=== PATIENT | male | born 1950 | race Caucasian/White ===

== ENCOUNTER 2018-09-29 22:11 | Emergency (ER) ==
[2018-09-29 22:19] VITALS: BP 104/57; TEMP 98.6; BMI 19.9
[2018-09-29] MEDS ORDERED: SODIUM CHLORIDE 1,000 ML IV STA (22:22)
[2018-09-29] MEDS ORDERED: ZOFRAN 4 MG/2 ML IVP STA (22:24)
--- NOTE | 2018-09-29 23:35 | ED.PDOC ---
General ED Provider: Dr. FRANCES MORA-ER Chief Complaint: Dizziness Stated Complaint: i smoked some strong pot aNd i am tired Time Seen by Physician: 22:15 Mode of Arrival: Walk-In Information Source: Patient Exam Limitations: No limitations Nursing and Triage Documentation Reviewed and Agree: Yes Does patient meet sepsis criteria?: No System Inflammatory Response Syndrome: Not Applicable Sepsis Protocol: For patient's 13 years and over: Temp is 96.8 and below OR 101 and greater Pulse >90 BPM Resp >20/minute Acutely Altered Mental Status Are patient's symptoms suggestive of a new infection, such as: -Pneumonia -Skin, Soft Tissue -Endocarditis -UTI -Bone, Joint Infection -Implantable Device -Acute Abdominal Infection -Wound Infection -Meningitis -Blood Stream Catheter Infection -Unknown Miscellaneous Complaint Exam - Complex/Multi-System Complaint/Exam Onset/Duration: tonight Symptoms Are: Still present Initial Severity: Mild Current Severity: Mild Location of Pain: no pain Associated Signs and Symptoms: Reports: Weakness, Nausea. Denies: Decreased responsiveness, Confusion, Agitation, Dizziness Recent Echo/LV Function: No JVD Present: No Tachypnea Present: No Stridor Present: No Abdominal Findings: Present: Normal findings Glascow Coma Scale (see protocol): 15 Meningeal Signs Positive: No Focal Weakness: Present: None Focal Sensory Loss: Present: None Gait: Normal Gag Reflex Present: Yes Babinski Sign: Negative Right, Negative Left Skin Findings: Present: Normal findings Joint Swelling Present: No In-Dwelling Device Present: No Quality Indicator For Non-Traumatic Chest Pain/Syncope: EKG Performed Review of Systems - Review Of Systems Constitutional: Reports: No symptoms, Weakness Eyes: Reports: No symptoms Ears, Nose, Mouth, Throat: Reports: No symptoms Respiratory: Reports: No symptoms Cardiac: Reports: Irregular heart rate GI: Reports: Nausea : Reports: No symptoms Musculoskeletal: Reports: No symptoms Skin: Reports: No symptoms Neurological: Reports: No symptoms Endocrine: Reports: No symptoms Hematologic/Lymphatic: Reports: No symptoms All Other Systems: Reviewed and Negative Past Medical History - Past Medical History Previously Healthy: Yes Endocrine: Reports: Unknown Cardiovascular: Reports: Unknown Respiratory: Reports: Unknown Hematological: Reports: Unknown Gastrointestinal: Reports: Unknown Genitourinary: Reports: Unknown Neuro/Psych: Reports: Unknown Musculoskeletal: Reports: Unknown Cancer: Reports: Unknown - Surgical History General Surgical History: Reports: Unknown - Family History Family History: Reports: Unknown - Social History Smoking Status: Current every day smoker, Heavy tobacco smoker Hx Substance Use: Yes (MARIJUANA) Alcohol Screening: None - Immunizations Tetanus Shot up to Date: No Physical Exam - Physical Exam Appearance: Well-appearing, No pain distress, Well-nourished Eyes: RIGO, EOMI, Conjunctiva clear ENT: Ears normal, Nose normal, Oropharynx normal Neck: Supple Respiratory: Airway patent, Breath sounds clear, Breath sounds equal, Respirations nonlabored Cardiovascular: Bradycardia GI/: Soft, Nontender, No masses, Bowel sounds normal, No Organomegaly Musculoskeletal: Normal strength, ROM intact, No edema, No calf tenderness Skin: Warm, Dry, Normal color Neurological: Sensation intact, Motor intact, Reflexes intact, Cranial nerves intact, Alert, Oriented Psychiatric: Affect appropriate, Mood appropriate Interpretation - EKG Interpretation Time of EKG #1: 23:36 Rate: [place] Rhythm: Sinus Ectopy: None [place]: NL ST Segment: Normal Interpretation: sinus bradycardia Critical Care Note - Critical Care Note Total Time (mins): 0 Course - Course Hematology/Chemistry: 09/29/18 22:30 09/29/18 22:30 Orders, Labs, Meds: Lab Review 09/29/18 09/29/18 09/29/18 22:30 22:30 22:30 WBC 6.99 RBC 4.64 L Hgb 14.5 Hct 41.9 L MCV 90.3 MCH 31.3 H MCHC 34.6 RDW Coeff of Zeinab 11.7 Plt Count 196 Immature Gran % (Auto) 0.4 Neut % (Auto) 56.4 Lymph % (Auto) 33.6 [place] % (Auto) 7.9 Eos % (Auto) 1.0 Baso % (Auto) 0.7 Immature Gran # (Auto) 0.0 Neut # (Auto) 3.9 Lymph # (Auto) 2.4 [place] # (Auto) 0.6 Eos # (Auto) 0.1 Baso # (Auto) 0.1 Sodium 137.6 Potassium 3.96 Chloride 104.2 Carbon Dioxide 22.1 Anion Gap 15.26 BUN 15.0 Creatinine 1.02 Estimated GFR (MDRD) 72.00 BUN/Creatinine Ratio 14.70 Glucose 152.2 H Calcium 9.35 Total Bilirubin 0.74 AST 26.0 ALT 19.1 Alkaline Phosphatase 79.7 Total Creatine Kinase 55.6 Troponin I < 0.012 Total Protein 7.10 Albumin 4.55 Globulin 2.55 Albumin/Globulin Ratio 1.78 Plasma/Serum Alcohol < 10.0 Orders Category Date Time Status EKG-(ED ONLY) Stat CARDIO 09/29/18 22:22 Completed ED PEDIATRIC CNS APPLIED .ONCE EMERGENCY 09/29/18 22:22 ED IV/MEDIPORT/POWERPORT .ONCE EMERGENCY 09/29/18 22:22 Poison Control [ED POISON CONTROL CONTACTED] .ONCE EMERGENCY 09/29/18 22:24 CBC W/ AUTO DIFF Stat LAB 09/29/18 22:30 Completed COMPREHENSIVE METABOLIC PANEL Stat LAB 09/29/18 22:30 Completed CREATINE KINASE Stat LAB 09/29/18 22:30 Completed ETOH LEVEL [BLOOD ALCOHOL] Stat LAB 09/29/18 22:30 Completed TROPONIN I Stat LAB 09/29/18 22:30 Completed 0.9 % Sodium Chloride [Saline Flush] MEDS 09/29/18 22:21 Discontinued 1 syr IVF PRN PRN Ondansetron HCl/Pf [Zofran 4 mg/2 ml] MEDS 09/29/18 22:24 Discontinued 4 mg IVP ONCE STA Sodium Chloride 0.9% [Sodium Chloride] 1,000 ml MEDS 09/29/18 22:22 Discontinued IV 125 mls/hr Medications Discontinued Medications Generic Name Dose Route Start Last Admin Trade Name Freq PRN Reason Stop Dose Admin Sodium Chloride 1,000 mls @ 125 mls/hr 09/29/18 22:22 09/29/18 23:52 Sodium Chloride IV 09/30/18 06:21 125 mls/hr .Q8H STA Administration Ondansetron HCl 4 mg 09/29/18 22:24 09/29/18 23:02 Zofran 4 Mg/2 Ml IVP 09/29/18 22:25 Not Given ONCE STA Sodium Chloride 1 syr 09/29/18 22:21 Saline Flush IVF PRN PRN To flush IV we wanted to keep him in observation after talking with poison control but he declines---he understands risk but he still wants to leave [facility] Vital Signs: Temp Pulse Resp BP Pulse Ox 09/29/18 22:11 98.6 F 52 L 20 104/57 L 99 Departure - Departure Time of Disposition: 23:37 Disposition: AMA Discharge Problem: Substance abuse Instructions: Cannabis Abuse (ED) Condition: Fair Pt referred to PMD for follow-up: Yes IPMP verified?: No Additional Instructions: return prn Allergies/Adverse Reactions: Allergies No Known Allergies Allergy (Unverified 09/29/18 22:17) Home Medications: Ambulatory Orders 1 [No Reported Medications] 09/29/18 Disposition Discussed With: Patient, Family
== END 2018-09-29 23:30 | disposition left against medical advice (07) ==
LOC: ED 22:11
DX: F12.10 Cannabis abuse, uncomplicated (principal); R42 Dizziness and giddiness; R53.83 Other fatigue; R53.1 Weakness; R11.0 Nausea; F17.210 Nicotine dependence, cigarettes, uncomplicated
CPT/HCPCS: 36415; 80053; 80307; 82550; 84484; 85025; 93005; 93010; 96361; 96374; 99283